=== PATIENT | female | born 1985 | race Two or more races ===

== ENCOUNTER 2018-08-26 14:32 | Emergency (ER) | payer MEDICAID, OTHER ==
[~2018-08-26] VITALS: Ht 152.4 cm; Wt 62.1 kg
[2018-08-26 15:32] LABS: Urine Bacteria FEW /hpf (None Seen); Urine Blood 1+ /uL (Negative); Urine Mucus FEW (None Seen); Urine Specific Gravity 1.029 (1.001-1.035); Urine WBC 12 /hpf (0 - 5)
[2018-08-26 15:41] LABS: Basophils # (auto) 0.1 uL; Basophils % (auto) 0.9 % (0.0-2.0); Eosinophils # (auto) 0 uL; Eosinophils % (auto) 0.3 % (0.0-7.0); Hematocrit 38.9 % (36.0-46.0); Lymphocytes # (auto) 1.6 uL; Lymphocytes % (auto) 14.9 % (10.0-50.0); Mean Corpuscular Hemoglobin 29.3 pg (28.0-32.0); Mean Corpuscular Hgb Conc. 33.3 g/dL (32.0-36.0); Monocytes # (auto) 0.6 uL; Monocytes % (auto) 6.1 % (0.0-12.0); Neutrophils # (auto) 8.2 uL; Neutrophils % (auto) 77.8 % (37.0-80.0); Platelet Count (auto) 216 10^3/uL (140-450); Red Blood Cells 4.42 10^6/uL (4.0-5.20); Red Cell Distribution Width 14.4 % (11.8-14.3); White Blood Cell 10.5 10^3/uL (4.4-10.8)
[2018-08-26 15:57] LABS: Albumin 3.8 g/dL (3.4-5.0); Potassium 3.7 mmol/L (3.5-5.1)
[2018-08-26 16:01] LABS: BUN/Creatinine Ratio 17.1; Bilirubin, Total 0.3 mg/dL (0.2-1.0); Total Protein 7.6 g/dL (6.4-8.2)
[2018-08-26 18:00] VITALS: BP 92/53
[2018-08-26] MEDS ORDERED: cefTRIAXone 1GM/50ML D5W 50 ML IV ONE (18:45)
[2018-08-26] MEDS ORDERED: SODIUM CHLORIDE 0.9% 1,000 ML IV ONE (18:45)
== END 2018-08-26 19:55 | disposition home or self-care (01) ==
LOC: ER 14:40
DX: O26.851 Spotting complicating pregnancy, first trimester (principal); O23.41 Unspecified infection of urinary tract in pregnancy, first trimester; O41.8X10 Other specified disorders of amniotic fluid and membranes, first trimester, not applicable or unspecified; Z3A.01 Less than 8 weeks gestation of pregnancy
CPT/HCPCS: 36415; 76801; 80053; 81001; 84702; 85025; 96374; 99284; J0696

== ENCOUNTER 2018-10-08 02:41 | Inpatient (IN) | payer MEDICAID ==
[~2018-10-08] VITALS: Ht 152.4 cm; Wt 61.2 kg
[2018-10-08 03:09] LABS: Basophils # (auto) 0.1 uL; Basophils % (auto) 0.5 % (0.0-2.0); Eosinophils # (auto) 0.1 uL; Eosinophils % (auto) 0.9 % (0.0-7.0); Hematocrit 39.4 % (36.0-46.0); Hemoglobin 13.2 g/dL (12.2-16.2); Lymphocytes # (auto) 2.1 uL; Lymphocytes % (auto) 22.4 % (10.0-50.0); Mean Corpuscular Hemoglobin 29.7 pg (28.0-32.0); Mean Corpuscular Hgb Conc. 33.4 g/dL (32.0-36.0); Mean Corpuscular Volume 88.8 fL (80.0-100.0); Monocytes # (auto) 0.6 uL; Monocytes % (auto) 6.1 % (0.0-12.0); Neutrophils # (auto) 6.7 uL; Neutrophils % (auto) 70.1 % (37.0-80.0); Platelet Count (auto) 241 10^3/uL (140-450); Red Blood Cells 4.44 10^6/uL (4.0-5.20); White Blood Cell 9.6 10^3/uL (4.4-10.8)
[2018-10-08] MEDS ORDERED: NALBUPHINE HCL 10 MG/1ml INJECTION IV ONE ×2 (03:15→07:45)
[2018-10-08] MEDS ORDERED: SODIUM CHLORIDE 0.9% 1,000 ML IV ONE ×2 (03:15→08:30)
[2018-10-08] MEDS ORDERED: ONDANSETRON HCL 4 MG/2 ML VIAL IV ONE ×2 (03:15→10:00)
[2018-10-08 03:28] LABS: Albumin 3.6 g/dL (3.4-5.0); Calcium 9.2 mg/dL (8.5-10.1); Potassium 3.8 mmol/L (3.5-5.1)
[2018-10-08 03:30] LABS: BUN/Creatinine Ratio 17.3
[2018-10-08 03:33] LABS: Bilirubin, Total 0.2 mg/dL (0.2-1.0); Total Protein 7.3 g/dL (6.4-8.2)
[2018-10-08 04:59] LABS: Urine Bacteria NONE SEEN /hpf (None Seen); Urine Blood 3+ /uL (Negative); Urine Specific Gravity 1.014 (1.001-1.035); Urine WBC 418 /hpf (0 - 5); Urine WBC Clumps PRESENT /hpf (None Seen)
[2018-10-08] MEDS ORDERED: MORPHINE SULF INJ 2 MG/ML SYRINGE 1ML IV ONE (05:30)
[2018-10-08] MEDS ORDERED: cefTRIAXone 1GM/50ML D5W 50 ML IV ONE (07:30)
[2018-10-08] MEDS ORDERED: OXYTOCIN 10UNIT/ML 1ML VIAL IV ONE (08:15)
[2018-10-08] MEDS ORDERED: OXYTOCIN 20 UNT in SODIUM CHLORIDE 0.9% 1,000 ML IV SCH (08:15)
[2018-10-08 09:46] LABS: INR < 0.93 (0.9-1.15); Partial Thromboplastin Time 26.5 sec (23.64-32.05)
[2018-10-08] MEDS ORDERED: ROCURONIUM 10MG/ML 10ML VIAL IV ONE (10:00)
[2018-10-08] MEDS ORDERED: DexAMETHasone SOD PHOS 10MG/1ML VIAL INJ IV ONE (10:00)
[2018-10-08] MEDS ORDERED: MIDAZOLAM HCL 1MG/1ML-2 ML VIAL ONE (10:00)
[2018-10-08] MEDS ORDERED: fentaNYL CITRATE 5 ML ONE (10:00)
[2018-10-08] MEDS ORDERED: METOCLOPRAMIDE HCL 5MG/ml INJ 2ml VIAL IV ONE (10:00)
[2018-10-08] MEDS ORDERED: PHENYLEPHRINE HCL 10 MG/ML VL IV ONE (10:00)
[2018-10-08] MEDS ORDERED: ceFAZolin 1GM VL IV ONE (10:00)
[2018-10-08] MEDS ORDERED: SUCCINYLCHOLINE CHLORIDE 20 MG/ML 10ML VIAL IV ONE (10:06)
[2018-10-08] MEDS ORDERED: LIDOCAINE HCL 2 %PF INJ 10ML AMP IJ ONE (10:06)
[2018-10-08] MEDS ORDERED: ceFAZolin 1GM/50ML 50 ML IV ONE (10:22)
[2018-10-08] MEDS ORDERED: METOCLOPRAMIDE HCL 5MG/ml INJ 2ml VIAL IV PRN (10:30)
[2018-10-08] MEDS ORDERED: HYDROmorphone HCL 2 MG/ML VL IV PRN (10:30)
[2018-10-08] MEDS ORDERED: fentaNYL CITRATE 100 MCG/2 ML VL IV PRN (10:30)
[2018-10-08] MEDS ORDERED: ONDANSETRON HCL 4 MG/2 ML VIAL IV PRN ×2 (10:30→11:15)
[2018-10-08] MEDS ORDERED: LACTATED RINGER'S 1,000 ML IV SCH (11:09)
[2018-10-08 11:52] VITALS: BP 100/59
== END 2018-10-08 17:58 | disposition home or self-care (01) | DRG 544 ==
LOC: ER 02:41 → OVERFLOW 02:42
PROVIDERS: ADMIT Specialist; ATTEND Specialist
PROC: 10D17ZZ Extraction of Products of Conception, Retained, Via Natural or Artificial Opening (ICD-10-PCS; principal; 2018-10-08 10:28)
DX: O03.4 Incomplete spontaneous abortion without complication (principal); Z82.49 Family history of ischemic heart disease and other diseases of the circulatory system; O03.38 Urinary tract infection following incomplete spontaneous abortion; Z98.891 History of uterine scar from previous surgery
CPT/HCPCS: 36415; 76801; 80053; 81001; 84702; 85025; 85610; 85730; 86850; 86900; 86901; G0378; J0330; J0690; J0696; J1100; J2250; J2405

== ENCOUNTER 2021-05-26 08:47 | Emergency (ER) | payer MEDICAID, OTHER ==
[~2021-05-26] VITALS: Ht 167.6 cm; Wt 57.2 kg
[2021-05-26] MEDS ORDERED: PANTOPRAZOLE 40 MG TAB PO ONE (09:30)
[2021-05-26] MEDS ORDERED: methylPREDNISolone SOD SUCC 125 MG/2 ML VL IM ONE (09:30)
[2021-05-26 09:57] LABS: Basophils # (auto) 0 10 ^3/uL (0-0.2); Basophils % (auto) 0.6 % (0.0-2.0); Eosinophils # (auto) 0 10 ^3/uL (0-0.8); Eosinophils % (auto) 0.7 % (0.0-7.0); Hematocrit 36.8 % (36.0-46.0); Hemoglobin 12.3 g/dL (12.2-16.2); Lymphocytes % (auto) 22.8 % (10.0-50.0); Mean Corpuscular Hemoglobin 28.7 pg (28.0-32.0); Mean Corpuscular Hgb Conc. 33.6 g/dL (32.0-36.0); Mean Corpuscular Volume 85.3 fL (80.0-100.0); Monocytes # (auto) 0.3 10 ^3/uL (0-1.3); Monocytes % (auto) 7.3 % (0.0-12.0); Neutrophils # (auto) 3.1 10 ^3/uL (1.6-8.6); Neutrophils % (auto) 68.6 % (37.0-80.0); Nucleated Red Blood Cells % 0.1 %; Red Blood Cells 4.31 10^6/uL (4.0-5.20); Red Cell Distribution Width 15.2 % (11.8-14.3); White Blood Cell 4.6 10^3/uL (4.4-10.8)
[2021-05-26 10:15] LABS: Albumin 3.6 g/dL (3.4-5.0); Anion Gap 8 (5-15); BUN/Creatinine Ratio 17.2; Blood Urea Nitrogen 10 mg/dL (7-18); Calcium 8.8 mg/dL (8.5-10.1); Carbon Dioxide 24 mmol/L (21-32); Chloride 109 mmol/L (98-107); GFR African American 153 mL/min; GFR Non-African American 126 mL/min; Glucose 90 mg/dL (74-106); Potassium 3.9 mmol/L (3.5-5.1); Sodium 141 mmol/L (136-145)
[2021-05-26] MEDS ORDERED: methylPREDNISolone SOD SUCC 125 MG/2 ML VL IV ONE (10:15)
[2021-05-26 10:22] LABS: Alanine Aminotransferase 19 U/L (13-56); Alkaline Phosphatase 99 U/L (45-117); Aspartate Aminotransferase 21 U/L (15-37); Bilirubin, Total 0.3 mg/dL (0.2-1.0)
[2021-05-26] MEDS ORDERED: PRED20TA2 PO (13:26)
[2021-05-26] MEDS ORDERED: PANT40TA2 PO (13:26)
[2021-05-26 14:00] VITALS: BP 104/55
== END 2021-05-26 15:01 | disposition home or self-care (01) ==
LOC: ER 08:47
DX: G51.0 Bell's palsy (principal); Z88.8 Allergy status to other drugs, medicaments and biological substances
CPT/HCPCS: 36415; 70450; 80053; 82962; 84484; 85025; 93005; 96374; 99285; J2930

== ENCOUNTER 2021-11-09 20:16 | Emergency (ER) | payer MEDICAID ==
[~2021-11-09] VITALS: Ht 157.5 cm; Wt 57.0 kg
[~2021-11-09 20:16] MED LIST: PANT40TA2 PO; PRED20TA2 PO
[2021-11-09 21:50] VITALS: BP 122/75
[2021-11-09] MEDS ORDERED: SODIUM CHLORIDE 0.9% 1,000 ML IVB ONE (22:45)
[2021-11-09 23:47] LABS: Basophils # (auto) 0 10 ^3/uL (0-0.2); Basophils % (auto) 0.3 % (0.0-2.0); Eosinophils # (auto) 0 10 ^3/uL (0-0.8); Eosinophils % (auto) 0.1 % (0.0-7.0); Hematocrit 37.7 % (36.0-46.0); Hemoglobin 11.9 g/dL (12.2-16.2); Lymphocytes # (auto) 1.3 10 ^3/uL (0.4-5.4); Lymphocytes % (auto) 13.4 % (10.0-50.0); Mean Corpuscular Hemoglobin 27.1 pg (28.0-32.0); Mean Corpuscular Hgb Conc. 31.7 g/dL (32.0-36.0); Mean Corpuscular Volume 85.4 fL (80.0-100.0); Monocytes # (auto) 0.6 10 ^3/uL (0-1.3); Monocytes % (auto) 6.4 % (0.0-12.0); Neutrophils # (auto) 7.9 10 ^3/uL (1.6-8.6); Neutrophils % (auto) 79.8 % (37.0-80.0); Nucleated Red Blood Cells % 0.1 %; Red Blood Cells 4.41 10^6/uL (4.0-5.20); Red Cell Distribution Width 14.1 % (11.8-14.3); White Blood Cell 9.9 10^3/uL (4.4-10.8)
[2021-11-10 00:07] LABS: Albumin 3.9 g/dL (3.4-5.0); BUN/Creatinine Ratio 19.1; Calcium 8.7 mg/dL (8.5-10.1); Potassium 4.2 mmol/L (3.5-5.1)
[2021-11-10 00:09] LABS: Bilirubin, Total 0.3 mg/dL (0.2-1.0); Total Protein 7.5 g/dL (6.4-8.2)
[2021-11-10] MEDS ORDERED: [UNRECOGNIZED DRUG - CODE] PO (00:50)
== END 2021-11-10 02:29 | disposition home or self-care (01) ==
LOC: ER 20:18
DX: R10.32 Left lower quadrant pain (principal); R10.2 Pelvic and perineal pain; Z88.8 Allergy status to other drugs, medicaments and biological substances
CPT/HCPCS: 36415; 74176; 76705; 80053; 83605; 83690; 84702; 85025; 93005

== ENCOUNTER 2023-03-04 17:34 | Emergency (ER) | payer MEDICAID ==
[~2023-03-04] VITALS: Ht 152.4 cm; Wt 56.0 kg
[~2023-03-04 17:34] MED LIST changes: +[UNRECOGNIZED DRUG - CODE] PO
[2023-03-04] MEDS ORDERED: SODIUM CHLORIDE 0.9% 1,000 ML IVB ONE (18:00)
[2023-03-04] MEDS ORDERED: ONDANSETRON HCL 4 MG/2 ML VIAL IV ONE (18:00)
[2023-03-04] MEDS ORDERED: ACTIVATED CHARCOAL 50 GM/240 ML SOL PO ONE (18:00)
[2023-03-04] MEDS ORDERED: ACCU-CHEK COMFORT CURVE STRIP VI ONE (18:00)
[2023-03-04 18:27] VITALS: PULSE 70; RESP 12; O2SAT 100
[2023-03-04 19:04] LABS: Basophils # (auto) 0 10 ^3/uL (0-0.2); Basophils % (auto) 0.5 % (0.0-2.0); Eosinophils # (auto) 0.1 10 ^3/uL (0-0.8); Eosinophils % (auto) 0.9 % (0.0-7.0); Hematocrit 38.7 % (36.0-46.0); Hemoglobin 12.2 g/dL (12.2-16.2); Lymphocytes # (auto) 1.9 10 ^3/uL (0.4-5.4); Lymphocytes % (auto) 21.1 % (10.0-50.0); Mean Corpuscular Hemoglobin 26.5 pg (28.0-32.0); Mean Corpuscular Hgb Conc. 31.5 g/dL (32.0-36.0); Mean Corpuscular Volume 84.2 fL (80.0-100.0); Monocytes # (auto) 0.6 10 ^3/uL (0-1.3); Monocytes % (auto) 7.2 % (0.0-12.0); Neutrophils # (auto) 6.2 10 ^3/uL (1.6-8.6); Neutrophils % (auto) 70.3 % (37.0-80.0); Red Blood Cells 4.59 10^6/uL (4.0-5.20); Red Cell Distribution Width 15.6 % (11.8-14.3); White Blood Cell 8.9 10^3/uL (4.4-10.8)
[2023-03-04 19:14] LABS: Acetaminophen < 2.0 UG/ML (10.0-20.0); Alanine Aminotransferase 10 U/L (7-40); Albumin 4.7 g/dL (3.2-4.8); Alkaline Phosphatase 94 U/L (46-116); Anion Gap 10 (5-15); Aspartate Aminotransferase 20 U/L (13-40); BUN/Creatinine Ratio 14.1 (10.0-20.0); Blood Alcohol < 3.0 mg/dL (<10); Blood Urea Nitrogen 10 mg/dL (9-23); Calcium 9.8 mg/dL (8.5-10.1); Carbon Dioxide 22 mmol/L (20-30); Chloride 107 mmol/L (98-107); Glucose 91 mg/dL (74-106); Potassium 4.4 mmol/L (3.5-5.1); Sodium 139 mmol/L (136-145)
[2023-03-04 19:15] LABS: Bilirubin, Total 0.4 mg/dL (0.2-1.0); Creatine Kinase IFCC 51 U/L (34-145); Total Protein 7.2 g/dL (5.7-8.2)
[2023-03-04 19:23] LABS: Salicylate < 3.0 mg/dL (2.8-20.0)
[2023-03-04 19:26] LABS: Magnesium 2.1 mg/dL (1.6-2.6)
[2023-03-04 19:43] VITALS: PULSE 81; RESP 10; O2SAT 100
[2023-03-04 20:11] LABS: Urine Epithelial Cast None Seen /hpf (<5)
[2023-03-04 20:43] LABS: Amphetamine Screen, Urine Neg (NEGATIVE); Benzodiazephine Screen, Urine Neg (NEGATIVE)
[2023-03-04 20:44] LABS: Barbiturate Scree,Urine Neg (NEGATIVE); Cannabinoid Screen, Urine Neg (NEGATIVE); Cocaine Screen, Urine Neg (NEGATIVE); Opiate Scree,Urine Neg (NEGATIVE); Phencyclidine Screen, Urine Neg (NEGATIVE)
[2023-03-04 20:56] LABS: Urine Bacteria NONE SEEN /hpf (None Seen); Urine Blood Negative /uL (Negative); Urine Clarity Clear (Clear); Urine Color Yellow (Yellow); Urine Protein, UAD Negative (Negative); Urine Specific Gravity 1.024 (1.001-1.035); Urine Urobilinogen Normal (Negative); Urine WBC 1 /hpf (0 - 5); Urine pH 5.5 (5.0-8.0)
[2023-03-05] VITALS: BP 96/59; PULSE 80; RESP 14; TEMP 98; O2SAT 99
== END 2023-03-05 01:05 | disposition home or self-care (01) ==
LOC: ER 17:34 → EDBD 17:34 → ER 03-05 01:05
DX: T43.212A Poisoning by selective serotonin and norepinephrine reuptake inhibitors, intentional self-harm, initial encounter (principal); R10.2 Pelvic and perineal pain; R45.851 Suicidal ideations; R41.82 Altered mental status, unspecified; Z79.899 Other long term (current) drug therapy; Y92.89 Other specified places as the place of occurrence of the external cause
CPT/HCPCS: 36415; 71045; 80053; 80307; 80320; 80329; 81001; 82550; 83735; 84484; 84702; 85025; 93005; 96361; 96374; 99291; J2405; J7030

== ENCOUNTER 2023-05-31 13:33 | Emergency (ER) | payer MEDICAID, OTHER ==
[~2023-05-31] VITALS: Ht 154.9 cm; Wt 55.6 kg
[2023-05-31 14:47] LABS: Basophils # (auto) 0 10 ^3/uL (0-0.2); Basophils % (auto) 0.5 % (0.0-2.0); Eosinophils # (auto) 0.1 10 ^3/uL (0-0.8); Eosinophils % (auto) 1.5 % (0.0-7.0); Hematocrit 33.8 % (36.0-46.0); Hemoglobin 10.9 g/dL (12.2-16.2); Lymphocytes # (auto) 1.5 10 ^3/uL (0.4-5.4); Lymphocytes % (auto) 20.7 % (10.0-50.0); Mean Corpuscular Hgb Conc. 32.3 g/dL (32.0-36.0); Mean Corpuscular Volume 83.6 fL (80.0-100.0); Monocytes # (auto) 0.5 10 ^3/uL (0-1.3); Monocytes % (auto) 7.5 % (0.0-12.0); Neutrophils # (auto) 4.9 10 ^3/uL (1.6-8.6); Neutrophils % (auto) 69.8 % (37.0-80.0); Red Blood Cells 4.04 10^6/uL (4.0-5.20); Red Cell Distribution Width 16.3 % (11.8-14.3); White Blood Cell 7.1 10^3/uL (4.4-10.8)
[2023-05-31 14:48] LABS: Anion Gap 3 (5-15); Carbon Dioxide 29 mmol/L (20-30); Chloride 106 mmol/L (98-107); Potassium 3.9 mmol/L (3.5-5.1); Sodium 138 mmol/L (136-145)
[2023-05-31 14:50] LABS: Calcium 9.3 mg/dL (8.5-10.1)
[2023-05-31 14:54] LABS: BUN/Creatinine Ratio 18.3 (10.0-20.0); Blood Urea Nitrogen 13 mg/dL (9-23); Glucose 98 mg/dL (74-106)
[2023-05-31 22:45] VITALS: BP 105/65; PULSE 75; RESP 16; TEMP 98.7; O2SAT 98
== END 2023-05-31 22:48 | disposition home or self-care (01) ==
LOC: ER 13:33
DX: R07.89 Other chest pain (principal); R79.1 Abnormal coagulation profile; Z88.6 Allergy status to analgesic agent
CPT/HCPCS: 36415; 71046; 71275; 80048; 85025; 85379; 99285; Q9967

== ENCOUNTER 2023-07-31 22:08 | Emergency (ER) | payer MEDICAID, OTHER ==
[~2023-07-31] VITALS: Ht 162.6 cm; Wt 55.0 kg
[2023-07-31] MEDS ORDERED: ZOFR4T PO (22:54)
[2023-07-31] MEDS ORDERED: HYDR-4798 PO (22:54)
[2023-08-01] MEDS: ONDANSETRON ODT 4 MG TAB PO ONE
[2023-08-01] MEDS: HYDROcodone-ACET 10/325MG TAB PO ONE
[2023-08-01 00:58] VITALS: BP 128/76; PULSE 94; RESP 16; TEMP 98.5; O2SAT 98
== END 2023-08-01 00:57 | disposition home or self-care (01) ==
LOC: ER 22:08 → EDBD 22:08 → ER 08-01 00:57
DX: R19.09 Other intra-abdominal and pelvic swelling, mass and lump (principal); Z88.6 Allergy status to analgesic agent
CPT/HCPCS: 99283; Q0162